=== PATIENT | female | born 1965 | race African-American/Black ===

== ENCOUNTER 2022-07-14 17:07 | Emergency (ER) | payer OTHER, SELFPAY ==
[2022-07-14 17:26] VITALS: BP 141/108; PULSE 96; RESP 18; TEMP 37.3; O2SAT 99
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
== END 2022-07-14 18:43 | disposition home or self-care (01) ==
PROVIDERS: Emergency Provider Nurse Practitioner Family
DX: S16.1XXA Strain of muscle, fascia and tendon at neck level, initial encounter (principal); V49.40XA Driver injured in collision with unspecified motor vehicles in traffic accident, initial encounter
CPT/HCPCS: 99283

== ENCOUNTER 2024-12-07 17:02 | Emergency (ER) | payer SELFPAY ==
[2024-12-07] VITALS (8 sets, daily range): BP systolic 159–223; BP diastolic 87–117; PULSE 50–61; RESP 16–18; TEMP 36.7; O2SAT 97–100
--- NOTE | ~2024-12-07 | XR_ITS ---
XR chest 1V portable Ordering provider: Bernardino Flores MD History: 59 years Female with . htn . Comparison: None. FINDINGS: MEDIASTINUM: The cardiac silhouette is slightly enlarged. Congestive ced. LUNGS: No infiltrates, effusions or pneumothorax. OTHER: No free air under the diaphragm. Degenerative changes of the spine. IMPRESSION: No acute cardiopulmonary pathology. Reviewed, dictated and finalized at location A.
--- OUTSIDE RECORDS SUMMARY | 2024-12-07 17:04 | XMS_ITS | Clinical Summary ---
Author Organization [facility] Address [address] [place] [address] Phone Care Team Providers Care First Line Supervisor Name Role Phone Trung Vo MD Primary Care Provider [phone] Allergies Active Allergy Reactions Criticality Noted Date Comments Latex Itching Low 02/09/2021 Morphine Other (See Comments) 01/16/2016 Medications multivitamin (DAILY-GRISELDA) tablet Take 1 Tablet by mouth daily. Active ondansetron (Zofran ODT) 4 mg Tablet, Rapid Dissolve Take 1 Tablet (4 mg) by mouth every 6 hours as needed for Nausea/Emesis. Dissolve tablet under tongue & swallow any remaining residue with saliva. 40 Tablet 02/27/2021 12:41 PM CDT 1 Active omeprazole (PriLOSEC) 40 mg Capsule, Delayed Release(E.C.) Take 1 Capsule (40 mg) by mouth daily. Open capsule and pour contents into sugar-free jell-O or other food of similar consistency. 30 Capsule 2 02/27/2021 12:41 PM CDT 1 Active docusate sodium (COLACE) 100 mg capsule Take 1 Capsule (100 mg) by mouth 2 times daily. 60 Capsule 02/27/2021 12:41 PM CDT 1 Active HYDROcodone-aceta minophen (HYCET) 7.5-325 mg/15 mL SolutionIndicatio ns:S/P laparoscopic sleeve gastrectomy Take 10 mL by mouth every 6 hours as needed for Pain. Max Daily Amount: 40 mL 280 mL 02/27/2021 12:41 PM CDT Active cyanocobalamin, vitamin B-12, (VITAMIN B-12 ORAL) Take by mouth daily. Taken under the tongue Active zinc sulfate 50 mg zinc (220 mg) capsule Take 1 Capsule (220 mg) by mouth daily. 2 Active ferrous sulfate 325 mg (65 mg iron) tablet Take 1 Tablet (325 mg) by mouth daily. 30 Tablet 2 2 Active cholecalciferol 1,250 mcg (50,000 unit) Capsule Take 1 Capsule (50,000 Units) by mouth every 7 days. 28 Capsule 2 2 Active Active Problems Problem Noted Date Diagnosed Date MURPHY (acute kidney injury) 03/09/2021 Hypotension due to hypovolemia 03/09/2021 Elevated lipase 03/09/2021 Morbid obesity with BMI of 50.0-59.9, adult 02/05 FIDELINA (obstructive sleep apnea) 10/10/2020 Benign essential hypertension 09/06/2020 Prerenal acute renal failure Dehydration Essential hypertension Immunizations Immunization Administration Dates Next Due (Selventa)(12 YR UP) COVID-19 VACCINE - EMERGENCY USE AUTHORIZATION, MRNA, [id number]) 30 MCG/0.3 ML IM SUSP 09/15/2020,08/24/2020 Family History Medical History Relation Name Comments Diabetes Mother Hypertension Mother Asthma Sister Bronchitis Neg Hx Cancer Neg Hx Emphysema Neg Hx Heart Failure Neg Hx Lung Cancer Neg Hx Mesothelioma Neg Hx Relation Name Status Comments Mother Sister Social History Tobacco Use Types Packs/Day Years Used Date Smoking Tobacco: Never Smokeless Tobacco: Never Alcohol Use Standard Drinks/Week Comments Yes 0 (1 standard drink = 0.6 oz pur e alcohol) 2 per week Comments No Sex and Gender Information Value Date Recorded Sex Assigned at Not on file Legal Sex Female 10:37 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 Gender Identity Not on file Sexual Orientation Not on file Last Filed Vital Signs Vital Sign Reading Time Taken Comments Blood Pressure 155/82 03/15/2021 9:40 AM CDT Pulse 82 03/15/2021 9:40 AM CDT Temperature 36.6 C (97.9 F) 03/11/2021 12:47 PM CDT Respiratory Rate 20 03/11/2021 12:47 PM CDT Oxygen Saturation 96% 03/11/2021 12:47 PM CDT Inhaled Oxygen Concentration - - Weight 136.1 kg (300 lb) 08/30/2021 12:51 PM BEARING PRESS MACHINE OPERATOR Height 180.3 cm (5' 11) 08/30/2021 12:51 PM BEARING PRESS MACHINE OPERATOR Body Mass Index 41.84 08/30/2021 12:51 PM BEARING PRESS MACHINE OPERATOR Plan of Treatment Health Maintenance Due Date Last Done Comments DTAP/TDAP/TD VACCINES (1 - Tdap) 1982 BREAST CANCER SCREENING 2003 COLORECTAL SCREENING 2008 Colorectal Cancer Screening 2008 FIT-DNA Q 3 years 2008 FIT/FOBT Q 1 year 2008 Flex Sig/CT Colonography Q 5 years 2008 ZOSTER VACCINE (1 of 2) 2013 RSV VACCINE (60+ or ) (1 - Risk 60-74 years 1-dose series) 2023 INFLUENZA VACCINE (#1) 2024 COVID-19 Vaccine ( season) 2024 06/18/2021, 09/15/2020, 08/24/2020 Pre-Diabetes and Diabetes Screening 08/27/202408/27 Medical Devices Implanted Type Area Physical Therapy Coordinator Device Identifier Shelf Expiration Date Model / Serial / Lot Mesh/Hernia Procedures Procedure Name Priority Date/Time Associated Diagnosis Comments HEMOGLOBIN A1C Routine 08/27/2021 3:38 PM BEARING PRESS MACHINE OPERATOR S/P laparoscopic sleeve gastrectomy from Last 3 Months or Most Recently Relevant to Health Maintenance Results * HEMOGLOBIN A1C (08/27/2021 3:38 PM BEARING PRESS MACHINE OPERATOR) HEMOGLOBIN A1C 4.4 <5.7 % of total Hgb [facility] Comment: For the purpose of screening for the presence of diabetes: <5.7% Consistent with the absence of diabetes 5.7-6.4% Consistent with increased risk for diabetes (prediabetes) > or =6.5% Consistent with diabetes This assay result is consistent with a decreased risk of diabetes. Currently, no consensus exists regarding use of hemoglobin A1c for diagnosis of diabetes in children. According to [place] [employer] (ADA) guidelines, hemoglobin A1c <7.0% represents optimal control in non- diabetic patients. Different metrics may apply to specific patient populations. Standards of Medical Care in Diabetes(ADA). ESTIMATED AVERAGE GLUCOSE (MG/DL) 80 mg/dL [facility] ESTIMATED AVERAGE GLUCOSE (MMOL/L) 4.4 mmol/L [facility] Comment: Test Performed at: [facility] [id number] [id number] Federico Parker D.O., MPH Blood 08/27/2021 3:38 PM BEARING PRESS MACHINE OPERATOR 08/27/2021 3:40 PM BEARING PRESS MACHINE OPERATOR us Abad Nagel DO CHEMISTRY ORDERABLES Final Re sult [facility] [address] [place] [address] from Last 3 Months or Most Recently Relevant to Health Maintenance Insurance BCBS BLUE ACCESS/TRUE BLUE PPO RX [employer] Commercial Advance Directives For more information, please contact: [phone] * Full Code (Latest Code Status on File) Date Activated Date Inactivated Comments 03/09/2021 5:05 PM 03/11/2021 9:40 PM * Full Code Date Activated Date Inactivated Comments 02/26/2021 11:02 AM 02/27/2021 3:06 PM * Full Code Date Activated Date Inactivated Comments 02/26/2021 5:52 AM 02/26/2021 11:01 AM * Full Code Date Activated Date Inactivated Comments 12/19/2020 10:46 AM 12/19/2020 2:14 PM Care Teams First Line Supervisor Relationship Specialty Start Date End Date Trung Vo MD [address] [place] [id number] PCP - General Internal Medicine 08/23/20
--- OUTSIDE RECORDS SUMMARY | 2024-12-07 17:04 | XMS_ITS | Clinical Summary ---
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 Gender Identity Not on file Sexual Orientation Not on file Plan of Treatment Health Maintenance Due Date Last Done Comments Hepatitis C Virus (HCV) Screening 1965 TdaP Immunization 1965 Colonoscopy 2008 Colorectal Cancer Screening 2008 Cologuard 2013 Immunochemical Fecal Occult Blood 2013 Pneumococcal Immunization (5 0+ years) (1 of 1 - PCV) 2013 Zoster Immunization (1 of 2) 2013 Influenza Immunization (#1) 2024 SARS-COV-2 Immunization ( season) 2024 06/18/2021, 09/15/2020, 08/24/2020 Respiratory Syncytial Virus (RSV) Immunization (Adult) (1 - 1-dose 75+ series) 2038 Hepatitis B Immunization Aged Out No longer eligible based on patient's age to complete this topic Meningococcal Immunization (ACWY) Aged Out No longer eligible b ased on patient's age to complete this topic Rotavirus Immunization Aged Out No lo nger eligible based on patient's age to complete this topic
--- OUTSIDE RECORDS SUMMARY | 2024-12-07 17:04 | XMS_ITS | Clinical Summary ---
Author Organization [facility] Address [address] [place] [id number] Care Team Providers Care Fender Repairer Name Role Phone Trung Vo MD Primary Care Provider [phone] Allergies Active Allergy Reactions Criticality Noted Date Comments Latex Itching,Swelling Medium 11/02/2013 Swelling Morphine Other (See comments),Rash Medium 11/02/2013 Confusion Medications hydroCHLOROthia zide (HYDRODIURIL) 25 mg tablet Take 1 tablet (25 mg total) by mouth daily Active aspirin 81 mg enteric coated tablet Take 1 tablet (81 mg total) by mouth daily Active furosemide (LASIX) 20 mg tablet Take 1 tablet (20 mg total) by mouth daily as needed (swelling) Active bisacodyl EC (DULCOLAX EC) 5 mg EC tabletIndicatio ns:constipation Take 2 tablets (10 mg total) by mouth daily as needed for constipation (If no results 24 hours after milk of magnesia) 30 tablet 3 Active hydrALAZINE (APRESOLINE) 25 mg tabletIndicatio ns:hypertension Take 1 tablet (25 mg total) by mouth 3 (three) times a day 90 tablet 1 3 Active metoprolol tartrate (LOPRESSOR) 50 mg immediate release tablet Take 1 tablet (50 mg total) by mouth 2 (two) times a day 60 tablet 1 3 Active calcium carbonate 1,000 mg (400 mg elemental) tablet,chewable Indications:Hea rtburn Take 400 mg by mouth 2 (two) times a day as needed (heartburn). Indications: heartburn Active cholecalciferol (VITAMIN D-3) 50,000 unit capsule Take 1 capsule (50,000 Units total) by mouth every 7 days 3 Active acetaminophen (TYLENOL) 500 mg tabletIndicatio ns:Pain Take 2 tablets (1,000 mg total) by mouth every 6 (six) hours as needed for pain Active amoxicillin (AMOXIL) 500 mg tablet/capsule Take 4 tablet/capsule (2,000 mg total) by mouth once as needed (take 1 hour prior to dental visit) for up to 1 dose 4 tablet/capsu le 3 Active amLODIPine (NORVASC) 5 mg tablet Take 1 tablet (5 mg total) by mouth daily 3 Active cyclobenzaprine (FLEXERIL) 5 mg tabletIndicatio ns:Muscle Spasm Take 1 tablet (5 mg total) by mouth 2 (two) times a day as needed for muscle spasms 30 tablet 3 Active diclofenac sodium (VOLTAREN) 1 % gel Apply 2 g topically 4 (four) times a day 240 g 4 Active cholecalciferol (VITAMIN D-3) 5,000 unit capsule Take 1 capsule (5,000 Units total) by mouth daily 90 capsule 1 4 Active celecoxib (CeleBREX) 100 mg capsule TAKE 1 CAPSULE(100 MG) BY MOUTH TWICE DAILY 60 capsule 4 Active Active Problems Problem Noted Date Diagnosed Date Primary osteoarthritis of both knees 09/25/2023 Assessment & Plan (09/25/2023 8:54 AM CDT): Patient has advanced arthritis both of her knees radiographically with reactive synovitis clinically. She has had an acute exacerbation of her symptoms that are significantly impairing her at this time. Due to the severity of the patient's symptoms patient elected undergo a cortisone injections today for at least temporizing relief. She tolerated the procedures well. She should be working on significant weight reduction as she is likely facing knee replacement surgery in the future. She has a poor operative candidate being morbidly obese however. The patient was also advised if she does not get lasting relief with the cortisone injection she may want to consider gel injections as an alternative in the future Morbid obesity with body mas s index (BMI) of 40.0 to 44.9 in adult 09/25/2023 Other bilateral secondary osteoarthritis of knee 12/31/2022 Prerenal acute renal failure 09/26/2022 Dyslipidemia 09/26/2022 Dehydration 09/26/2022 Closed nondisplaced intertro chanteric fracture of right femur, initial encounter 08/17/2022 Hypotension due to hypovolemia 03/09/2021 Elevated lipase 03/09/2021 MURPHY (acute kidney injury) 03/09/2021 FIDELINA (obstructive sleep apnea) 10/10/2020 Benign essential hypertension 09/06/2020 Surgical History Surgery Date Site/Laterality Comments FEMUR FRACTURE SURGERY 08/18/2022 Right Intramedullary Nailing Femur Family History Medical History Relation Name Comments Cancer Father Hypertension Mother Relation Name Status Comments Father Mother Social History Tobacco Use Types Packs/Day Years Used Date Smoking Tobacco: Never Smokeless Tobacco: Never Tobacco Cessation:Counseling Given: Not Answered Alcohol Use Standard Drinks/Week Comments Yes 0 (1 standard drink = 0.6 oz pur e alcohol) OASIS D0700: Social Isolation Answer Da te Recorded Frequency of experiencing loneliness or isolatio n Never 09/10/2022 Social Connection and Isolat ion Panel [NHANES] Answer Date Recorded In a typical week, how many times do you talk on the phone with family, friends, or neighbors? More than three times a week 08/19/2022 How often do you get togethe r with friends or relatives? More than three times a week 08/19/2022 How often do you attend chur or congregational services? More than 4 times per year 08/19/2022 Do you belong to any clubs o r organizations such as congregation groups, unions, fraternal or athletic groups, or school groups? No 08/19/2022 How often do you attend meet ings of the clubs or organizations you belong to? Never 08/19/2022 Are you , , di vorced, , never , or living with a partner? Never 08/19/2022 Overall Financial Resource Strain (CARDIA) Answe r Date Recorded How hard is it for you to pa y for the very basics like food, housing, medical care, and heating? Not hard at all 08/19/2022 Hunger Vital Sign Answer Date Recorded Within the past 12 months, y ou worried that your food would run out before you got the money to buy more. Never true 08/19/19 23 Within the past 12 months, t he food you bought just didn't last and you didn't have money to get more. Never true 08/19/2022 PRAPARE - Transportation Answer Date Re corded In the past 12 months, has l ack of transportation kept you from medical appointments or from getting medications? No 08/07 In the past 12 months, has l ack of transportation kept you from meetings, work, or from getting things needed for daily living? No 08/19/2022 Housing Stability Vital Sign Answer Nhan e Recorded In the last 12 months, was t here a time when you were not able to pay the mortgage or rent on time? No 08/19/2022 In the last 12 months, how many places have you lived? 1 08/19/2022 In the last 12 months, was t here a time when you did not have a steady place to sleep or slept in a long term (including now)? 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 Not on file Not on file Obstetrics History Last Filed Vital Signs Vital Sign Reading Time Taken Comments Blood Pressure 124/68 11/07/2022 9:09 AM CDT Pulse 86 11/07/2022 9:09 AM CDT Temperature 36 C (96.8 F) 11/07/2022 9:09 AM CDT Respiratory Rate 18 11/07/2022 9:09 AM CDT Oxygen Saturation 95% 11/07/2022 9:09 AM CDT Inhaled Oxygen Concentration - - Weight 137.4 kg (303 lb) 09/25/2023 8:10 AM CDT Height 177.8 cm (5' 10) 09/25/2023 8:10 AM CDT Body Mass Index 43.48 09/25/2023 8:10 AM CDT Plan of Treatment Health Maintenance Due Date Last Done Comments Breast Cancer Screening-Mammogram 1963 Cervical Cancer Screening 1963 Colon Cancer Screening-Colonoscopy 1963 Depression Screening 1963 Hepatitis C Screening 1963 DTaP/Tdap/Td Vaccine (1 - Tdap) 1974 Hepatitis B Screening 1981 Regular Well Visit/Exam 18-64 1981 Zoster Vaccine (1 of 2) 2013 Covid-19 Vaccine (4 - 2023-2 5 season) 2024 06/18/2021, 09/15/2020, 08/24/2020 Influenza Vaccine (Season Ended) 2025 Pneumococcal vaccine <65 Aged Out No longer eligible based on patient's age to complete this topic Medical Devices Implanted Type Area Human Services Assistant Device Identifier Shelf Expiration Date Model / Serial / Lot [employer]/Orth o Intertan 13mm 18cm Trochanteric 125d Short Nail Intramedullary [id number] - [id number] Implanted:Qty: 1 on 08/18/2022 by Ramses Hodge MD at [facility] Right: Femur [employer]/Rich[employer]/Or tho 01/03/2032 [id number] / / [id number] [employer]/Richco/Orth o Intertan 11mm 105mm Lag Subtrochanter Screw Bone Titanium [id number] - [id number] Implanted:Qty: 1 on 08/18/2022 by Ramses Hodge MD at [facility] Right: Femur [employer]/Rich[employer]/Or tho 04/11/2031 [id number] / / [id number] Insurance [employer] [place] [place] Advance Directives For more information, please contact: [phone] * Full Code (Latest Code Status on File) Date Activated Date Inactivated Comments 08/18/2022 12:00 PM 09/06/2022 9:06 PM * Full Code Date Activated Date Inactivated Comments 08/17/2022 7:25 AM 08/18/2022 12:00 PM * Full Code Date Activated Date Inactivated Comments 08/17/2022 7:24 AM 08/17/2022 7:25 AM Care Teams Fender Repairer Relationship Specialty Start Date End Date Trung Vo MD [address] [place] [id number] PCP - General Internal Medicine 08/17/22
--- OUTSIDE RECORDS SUMMARY | 2024-12-07 17:04 | XMS_ITS | Referral Summary ---
Author Organization [facility] Address [address] [place] [id number] Care Team Providers Care Puddler Pile Driving Name Role Phone Trung Vo MD Primary Care Provider [phone] Allergies Active Allergy Reactions Criticality Noted Date [...] sleep apnea) 10/10/2020 Benign essential hypertension 09/06/2020 Social History Tobacco Use Types Packs/Day Years [...] 08/19/2022 How often do you attend chur ch or catholic services? More than 4 times per year 08/19/2022 Do you belong to any clubs o r organizations such as druze groups, unions, fraternal or athletic groups, or [...] place to sleep or slept in a fdc (including now)? 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 Not on file Not on file Last Filed Vital Signs [...] 09/25/2023 8:10 AM CDT Plan of Treatment Not on file Medical Devices Implanted Type Area Locomotive Mechanic Device Identifier Shelf Expiration Date Model / Serial / Lot [employer]/Rich[employer]/Orth o Intertan 13mm 18cm Trochanteric 125d Short Nail Intramedullary [id number] - [id number] Implanted:Qty: 1 on 08/18/2022 by Ramses Hodge MD at [facility] Right: Femur [employer]/Or tho 01/03/2032 [id number] / / [id number] [employer]/Rich[employer]/Orth o Intertan 11mm 105mm Lag Subtrochanter Screw Bone Titanium [id number] - [id number] Implanted:Qty: 1 on 08/18/2022 by Ramses Hodge MD at [facility] Right: Femur [employer]/Rich[employer]/Or tho 04/11/2031 [id number] / / [id number] Insurance [employer] [place] COUNT INCLUDES THE [facility] Advance Directives For more information, please contact: [phone] * Full Code (Latest Code Status on File) Date Activated Date Inactivated Comments 08/18/2022 12:00 PM 09/06/2022 9:06 PM * Full Code Date Activated Date Inactivated Comments 08/17/2022 7:25 AM 08/18/2022 12:00 PM * Full Code Date Activated Date Inactivated Comments 08/17/2022 7:24 AM 08/17/2022 7:25 AM Care Teams Puddler Pile Driving Relationship Specialty Start Date End Date Trung Vo MD [address] [place] [address] PCP - General Internal Medicine 08/17/22
--- NOTE | 2024-12-07 17:15 | ECG_ITS ---
Test Date: 2024-12-07 17:18:08 Measurements Intervals [place] Rate: 51 P: 25 TN: 278 QRS: -29 QRSD: 98 T: 82 QT: 427 QTc: 394 Interpretive Statements SINUS BRADYCARDIA WITH FIRST DEGREE AV BLOCK POSSIBLE LEFT ATRIAL ENLARGEMENT LEFT VENTRICULAR HYPERTROPHY WITH ST-T CHANGE POOR R WAVE PROGRESSION BORDERLINE ECG No previous ECG available for comparison Electronically Signed On 12-07-2024 18:50:11 CDT by Kiel Lorenzo D.O.
--- OUTSIDE RECORDS SUMMARY | 2024-12-07 17:26 | XMS_ITS | Referral Summary ---
Author Organization [facility] Address [address] [place] [id number] Care Team Providers Care Stringer Machine Tender Name Role Phone Trung Vo MD Primary Care Provider [phone] Allergies Active Allergy Reactions Criticality Noted Date [...] often do you attend chur ch or samaritan services? More than 4 times per year 08/19/2022 Do you belong to any clubs o r organizations such as shinto groups, unions, fraternal or athletic groups, or [...] place to sleep or slept in a nursing home (including now)? 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) Not on file [...] on file Medical Devices Implanted Type Area Contact Assembler Device Identifier Shelf Expiration Date Model / Serial / Lot [employer] Nephew/Richco/Orth o Intertan 13mm 18cm Trochanteric 125d Short Nail Intramedullary [id number] - [id number] Implanted:Qty: 1 on 08/18/2022 by Ramses Hodge MD at [facility] Right: Femur [employer] Nephew/Richco/Or tho 01/03/2032 [id number] / / [id number] [employer]hew/Richco/Orth o Intertan 11mm 105mm Lag Subtrochanter Screw Bone Titanium [id number] - [id number] Implanted:Qty: 1 on 08/18/2022 by Ramses Hodge MD at [facility] Right: Femur [employer]hew/Richco/Or tho 04/11/2031 [id number] / / [id number] Insurance [employer] [place] [facility] Advance Directives For more information, please contact: [phone] * Full Code (Latest Code Status on File) Date Activated Date Inactivated Comments 08/18/2022 12:00 PM 09/06/2022 9:06 PM * Full Code Date Activated Date Inactivated Comments 08/17/2022 7:25 AM 08/18/2022 12:00 PM * Full Code Date Activated Date Inactivated Comments 08/17/2022 7:24 AM 08/17/2022 7:25 AM Care Teams Stringer Machine Tender Relationship Specialty Start Date End Date Trung Vo MD [address] [place] [address] PCP - General Internal Medicine 08/17/22
--- OUTSIDE RECORDS SUMMARY | 2024-12-07 17:27 | XMS_ITS | Clinical Summary ---
Author Organization [facility] Address [address] [place] [id number] Care Team Providers Care Vp Compliance Name Role Phone Trung Vo MD Primary Care Provider [phone] Allergies Active Allergy Reactions Criticality Noted Date [...] How often do you attend chur or sikhism services? More than 4 times per year 08/19/2022 Do you belong to any clubs o r organizations such as episcopalian groups, unions, fraternal or athletic groups, or [...] place to sleep or slept in a alf (including now)? 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) Not on [...] this topic Medical Devices Implanted Type Area Electronics Technology Instructor Device Identifier Shelf Expiration Date Model / Serial / Lot [employer]/Richco/Orth o Intertan 13mm 18cm Trochanteric 125d Short Nail Intramedullary [id number] - [id number] Implanted:Qty: 1 on 08/18/2022 by Ramses Hodge MD at [facility] Right: Femur [employer]/Richco/Or tho 01/03/2032 [id number] / / [id number] [employer]hew/Richco/Orth o Intertan 11mm 105mm Lag Subtrochanter Screw Bone Titanium [id number] - [id number] Implanted:Qty: 1 on 08/18/2022 by Ramses Hodge MD at [facility] Right: Femur [employer]/Richco/Or tho 04/11/2031 [id number] / / [id number] Insurance [facility] [place] Advance Directives For more information, please contact: [phone] * Full Code (Latest Code Status on File) Date Activated Date Inactivated Comments 08/18/2022 12:00 PM 09/06/2022 9:06 PM * Full Code Date Activated Date Inactivated Comments 08/17/2022 7:25 AM 08/18/2022 12:00 PM * Full Code Date Activated Date Inactivated Comments 08/17/2022 7:24 AM 08/17/2022 7:25 AM Care Teams Vp Compliance Relationship Specialty Start Date End Date Trung Vo MD [address] [place] [id number] PCP - General Internal Medicine 08/17/22
--- OUTSIDE RECORDS SUMMARY | 2024-12-07 17:27 | XMS_ITS | Clinical Summary ---
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
--- OUTSIDE RECORDS SUMMARY | 2024-12-07 17:27 | XMS_ITS | Clinical Summary ---
Author Organization [facility] Address [address] [place] [address] Phone Care Team Providers Care Ventilator Specialist Name Role Phone Trung Vo MD Primary Care Provider [phone] Allergies Active Allergy Reactions Criticality Noted Date [...] hypertension Immunizations Immunization Administration Dates Next Due (Crovat)(12 YR UP) COVID-19 VACCINE - EMERGENCY USE AUTHORIZATION, MRNA, [id number](PF) 30 MCG/0.3 ML IM SUSP 09/15/2020,08/24/2020 Family [...] on file Legal Sex Female 10:37 AM PINMAKER Gender Identity Not on file Sexual Orientation [...] 136.1 kg (300 lb) 08/30/2021 12:51 PM PINMAKER Height 180.3 cm (5' 11) 08/30/2021 12:51 PM PINMAKER Body Mass Index 41.84 08/30/2021 12:51 PM PINMAKER Plan of Treatment Health Maintenance Due Date [...] Screening 08/27/202408/27 Medical Devices Implanted Type Area Kiln Puller Device Identifier Shelf Expiration Date Model / Serial / Lot Mesh/Hernia Procedures Procedure Name Priority Date/Time Associated Diagnosis Comments HEMOGLOBIN A1C Routine 08/27/2021 3:38 PM PINMAKER S/P laparoscopic sleeve gastrectomy from Last 3 Months or Most Recently Relevant to Health Maintenance Results * HEMOGLOBIN A1C (08/27/2021 3:38 PM PINMAKER) HEMOGLOBIN A1C 4.4 <5.7 % of total [...] diagnosis of diabetes in children. According to [place] Diabetes Association (ADA) guidelines, hemoglobin A1c <7.0% represents optimal control in non- diabetic patients. Different metrics may apply to specific patient populations. Standards of Medical Care in Diabetes(ADA). ESTIMATED AVERAGE GLUCOSE (MG/DL) 80 mg/dL [facility] ESTIMATED AVERAGE GLUCOSE (MMOL/L) 4.4 mmol/L [facility] Comment: Test Performed at: [facility] [address] [id number] Federico Parker D.O., MPH Blood 08/27/2021 3:38 PM PINMAKER 08/27/2021 3:40 PM PINMAKER us Abad Nagel DO CHEMISTRY ORDERABLES Final Re sult [facility] [address] [place] [address] from Last 3 Months or Most Recently Relevant to Health Maintenance Insurance BCBS BLUE ACCESS/TRUE BLUE PPO RX [employer] Commercial Advance Directives For more information, please contact: [phone] * Full Code (Latest Code Status on File) Date Activated Date Inactivated Comments 03/09/2021 5:05 PM 03/11/2021 9:40 PM * Full Code Date Activated Date Inactivated Comments 02/26/2021 11:02 AM 02/27/2021 3:06 PM * Full Code Date Activated Date Inactivated Comments 02/26/2021 5:52 AM 02/26/2021 11:01 AM * Full Code Date Activated Date Inactivated Comments 12/19/2020 10:46 AM 12/19/2020 2:14 PM Care Teams Ventilator Specialist Relationship Specialty Start Date End Date Trung Vo MD [address] [place] [phone] PCP - General Internal Medicine 08/23/20
--- NOTE | 2024-12-07 17:57 | ED.GENADULT ---
HPI - General Adult General Chief complaint: Recheck/Abnormal Lab/Rx Stated complaint: htn Time Seen by Provider: 12/07/24 17:13 History of Present Illness HPI narrative: 59-year-old female history of hypertension that does take metoprolol presents emergency department for evaluation of elevated blood pressure. Patient states she is supposed to take metoprolol 100 mg twice daily. Patient states she usually takes both doses in the morning. Patient states this morning she did have an episode of emesis states she did taste her medication. Patient does suspect that she did vomit some of her medication. While patient was up and walking around she stated she felt that she was light on her feet, patient states that she had no sensation of syncope, chest pain or shortness of breath. At rest patient states he does feel improved. Patient's initial blood pressure was significantly elevated upon arrival to the emergency department. At time of initial evaluation and prior to getting any medications for blood pressure was 185 systolic. Related Data Allergies Allergy/AdvReac Type Severity Reaction Status Date / Time No Known Allergies Allergy Verified 07/14/22 18:26 Course Vital Signs Vital signs: Vital Signs Temperature 98.1 F 12/07/24 17:13 Pulse Rate 61 12/07/24 17:13 Respiratory Rate 16 12/07/24 17:13 Blood Pressure 223/111 H 12/07/24 17:13 Pulse Oximetry 99 12/07/24 17:13 Oxygen Delivery Room Air 12/07/24 17:13 Temperature 98.1 F 12/07/24 17:13 Pulse Rate 57 L 12/07/24 20:55 Respiratory Rate 17 12/07/24 20:55 Blood Pressure 164/100 H 12/07/24 20:55 Pulse Oximetry 100 12/07/24 20:55 Oxygen Delivery Room Air 12/07/24 17:13 Medical Decision Making [facility] Narrative Medical decision making narrative: 59-year-old female presents emergency department for evaluation for elevated blood pressure. Patient's blood pressure after treatment was 159/87 and this is similar to her baseline. Patient is currently afebrile with no leukocytosis hemoglobin 13.7. Patient has no acute abnormalities on her CMP was normal kidney function. Patient's troponin was negative. Patient states she does feel back to her baseline. Patient denies any lightheadedness. Patient denies ever having any headache, chest pain or shortness of breath. I suspect some of the elevated blood pressure was due to her taking her metoprolol doses so close together. Differential Diagnosis Differential Diagnosis: Hypertension, medication noncompliance, hypertensive urgency, hypertensive crisis Vital Signs Vital Signs: Vital Signs Temperature 98.1 F 12/07/24 17:13 Pulse Rate 61 12/07/24 17:13 Respiratory Rate 16 12/07/24 17:13 Blood Pressure 223/111 H 12/07/24 17:13 Pulse Oximetry 99 12/07/24 17:13 Oxygen Delivery Room Air 12/07/24 17:13 Temperature 98.1 F 12/07/24 17:13 Pulse Rate 57 L 12/07/24 20:55 Respiratory Rate 17 12/07/24 20:55 Blood Pressure 164/100 H 12/07/24 20:55 Pulse Oximetry 100 12/07/24 20:55 Oxygen Delivery Room Air 12/07/24 17:13 Lab Data Lab results reviewed: Yes I reviewed the patient's lab results. 12/07/24 18:05 12/07/24 18:05 Labs: Lab Results 12/07/24 Range/Units 18:05 WBC 9.4 (4.5-10.0) K/mm3 RBC 4.85 (4.2-5.4) M/mm3 Hgb 13.7 (12.0-15.0) g/dL Hct 43.8 (37.0-47.0) % MCV 90.3 (80-100) fl MCH 28.2 (26-34) pg MCHC 31.3 L (32-36) g/dl RDW 11.9 (11.5-14.5) % Plt Count 305 (150-375) k/mm3 MPV 10.8 H (7.4-10.4) fl Immature Gran % (Auto) 0.2 (0-0.5) % Neut % (Auto) 70.6 (45.5-73.1) % Lymph % (Auto) 21.7 (18.3-44.2) % [place] % (Auto) 5.2 (2.6-8.5) % Eos % (Auto) 1.7 (0-4.4) % Baso % (Auto) 0.6 (0.2-1.2) % Lymph # (Auto) 2.05 (0.9-3.2) K/mm3 [place] # (Auto) 0.5 (0.1-0.6) K/mm3 Eos # (Auto) 0.2 (0-0.3) K/mm3 Baso # (Auto) 0.1 (0.0-0.1) K/mm3 Abs Immat Gran (auto) 0.02 (0.00-0.031) K/mm3 Absolute Neuts (auto) 6.7 (1.3-6.7) K/mm3 Absolute Nucleated RBC 0.000 (0.0-0.012) K/mm3 Nucleated RBC % 0.0 (0.0-0.2) % PT 13.8 (11.1-14.7) Seconds INR 1.1 APTT 24.5 (22.3-36.8) Seconds Sodium 139 (137-145) mmol/L Potassium 4.3 (3.4-5.0) mmol/L Chloride 104 (98-107) mmol/L Carbon Dioxide 29 (22-30) mmol/L Anion Gap 6 (4-12) mmol/L BUN 21 H (7-17) mg/dL Creatinine 0.70 (0.7-1.0) mg/dL Estim Creat Clear Calc 113 ml/min Estimated GFR > 60 (59 - ) Glucose 98 (65-110) mg/dL Calcium 9.1 (8.4-10.2) mg/dL Total Bilirubin 0.7 (0.2-1.3) mg/dL AST 24 (14-36) U/L ALT 12 (6-35) U/L Alkaline Phosphatase 102 (38-126) U/L Troponin I < 0.012 (0.000-0.034) ng/mL Total Protein 7.9 (6.3-8.2) g/dL Albumin 4.2 (3.5-5.1) g/dL Imaging Data Radiologist's impression: Impressions Chest X-Ray 12/07/24 17:47 IMPRESSION: No acute cardiopulmonary pathology. ECG Data EKG #1: EKG Interpretation: bradycardia, sinus rhythm, no ectopy, non-specific ST changes, normal QRS and left axis Discharge Plan Discharge Clinical Impression: Hypertension Patient Disposition: Home Condition: Stable Instructions: Antibiotic Form, Hypertension (ED) Additional Instructions: Have approximately 10-12 hours between dosing of your metoprolol. Have close follow-up with your primary care physician. If you have any worsening symptoms then please call or return to the emergency department. Patient Language: Swedish Prescriptions: No Action methocarbamol 750 mg tablet 750 mg PO TID Qty: 15 0RF Follow-up/Referrals: PHYSICIAN NOT ON STAFF,NONSTAFF [Primary Care Provider] -
[2024-12-07 18:14] LABS: Basophils Absolute Auto 0.1 K/mm3 (0.0-0.1); Basophils Percent Auto 0.6 % (0.2-1.2); Eosinophils Absolute Auto 0.2 K/mm3 (0-0.3); Eosinophils Percent Auto 1.7 % (0-4.4); Hematocrit 43.8 % (37.0-47.0); Hemoglobin 13.7 g/dL (12.0-15.0); Immature Granulocyte Absolute 0.02 K/mm3 (0.00-0.031); Immature Granulocyte Percent A 0.2 % (0-0.5); Lymphocytes Absolute Auto 2.05 K/mm3 (0.9-3.2); Lymphocytes Percent Auto 21.7 % (18.3-44.2); Mean Corpuscular HGB Conc 31.3 g/dl (32-36); Mean Corpuscular Hemoglobin 28.2 pg (26-34); Mean Corpuscular Volume 90.3 fl (80-100); Mean Platelet Volume 10.8 fl (7.4-10.4); Monocytes Absolute Auto 0.5 K/mm3 (0.1-0.6); Monocytes Percent Auto 5.2 % (2.6-8.5); Neutrophils Absolute Auto 6.7 K/mm3 (1.3-6.7); Neutrophils Percent Auto 70.6 % (45.5-73.1); Platelet Count Result 305 k/mm3 (150-375); Red Blood Count 4.85 M/mm3 (4.2-5.4); Red Cell Distribution Width 11.9 % (11.5-14.5); White Blood Count 9.4 K/mm3 (4.5-10.0)
[2024-12-07] MEDS: hydrALAZINE HCL 20 MG/ML VIAL 10 MG IV PUSH ×2 (18:24→20:32)
[2024-12-07] MEDS: METOPROLOL TARTRATE 50 MG TAB PO (18:24)
[2024-12-07 18:25] LABS: Alanine Aminotransferase 12 U/L (6-35); Albumin Level 4.2 g/dL (3.5-5.1); Alkaline Phosphatase 102 U/L (38-126); Anion Gap 6 mmol/L (4-12); Aspartate Amino Transferase 24 U/L (14-36); Bilirubin,Total 0.7 mg/dL (0.2-1.3); Blood Urea Nitrogen 21 mg/dL (7-17); Calcium 9.1 mg/dL (8.4-10.2); Carbon Dioxide 29 mmol/L (22-30); Chloride 104 mmol/L (98-107); Estimated CRCL calculation 113 ml/min; Estimated Glomerular Filt Rate > 60; Glucose 98 mg/dL (65-110); Potassium 4.3 mmol/L (3.4-5.0); Sodium 139 mmol/L (137-145); Total Protein 7.9 g/dL (6.3-8.2)
[2024-12-07 18:26] LABS: INR 1.1; Partial Thromboplastin Time 24.5 Seconds (22.3-36.8); Prothrombin Time 13.8 Seconds (11.1-14.7)
[2024-12-07 18:36] LABS: Troponin I < 0.012 ng/mL (0.000-0.034)
--- NOTE | 2024-12-07 19:30 | PC.NURSE ---
Assumed care of patient after receiving bedside report from JASON Arevalo & JASON Gardner @ [phone]
--- NOTE | 2024-12-07 20:20 | PC.NURSE ---
Attempted to discharge patient around 2019 but BP was elevated to 200s/100s. EDP Mark made aware and medications were given.
[2024-12-07] MEDS: METOPROLOL TARTRATE INJ 5 MG/5 ML VIAL IV PUSH (20:32)
[2024-12-07 21:24] LABS: Add Urine Microscopic? YES; Appearance Urine Clear (Clear); Bacteria Urine None Seen /hpf; Bilirubin Urine Negative (Negative); Blood Urine Negative (Negative); Color Urine Yellow (Yellow); Glucose Urine UA Negative (Negative); Ketones Urine Negative (Negative); Leukocyte Esterase Ur Negative LEU/UL (Negative); Nitrate Urine Negative (Negative); Non Pathogenic Casts 0-2; Protein Urine Trace mg/dL (Negative); RBC Urine 0-2 /hpf (0-2); Specific Grav Ur 1.025 (1.001-1.035); Squamous Epithelial Cell Urine Occasional /hpf (Few); WBC Urine 0-5 /hpf (0-3); pH Urine 6.5 (5.0-9.0)
--- NOTE | 2024-12-07 21:25 | PC.NURSE ---
Rochelle RN attempted to discharge patient around 2009 and pt stated she had just received medications and wanted to watch her bp a few more times.
--- NOTE | 2024-12-07 21:43 | PC.NURSE ---
Patient and daughter stated they would like to wait to be discharged until her urine results are provided. ED charge called lab whom stated the machine was down. Per EDP if something abnormal comes back on urine, he will send prescriptions in. Patient provided with my health portal pamphlet at discharge and advised of prescription information.
== END 2024-12-07 21:40 | disposition home or self-care (01) ==
PROVIDERS: Emergency Provider Emergency Medicine
DX: I10 Essential (primary) hypertension (principal)
CPT/HCPCS: 36415; 71045; 80053; 81001; 84484; 85025; 85610; 85730; 93005; 96374; 96375; 96376; 99284; A9270; J0360